=== PATIENT | male | born 1945 | race Caucasian/White ===

== ENCOUNTER 2025-04-18 15:37 | Emergency (ER) | payer MEDICARE | END 2025-04-18 18:00 | disposition home or self-care (01) | LOC: MADERS 15:37 | DX: S60.212A Contusion of left wrist, initial encounter (principal); S00.83XA Contusion of other part of head, initial encounter; S09.90XA Unspecified injury of head, initial encounter; I10 Essential (primary) hypertension; I48.91 Unspecified atrial fibrillation; G47.30 Sleep apnea, unspecified; G62.9 Polyneuropathy, unspecified; M32.9 Systemic lupus erythematosus, unspecified; W18.11XA Fall from or off toilet without subsequent striking against object, initial encounter; Z79.01 Long term (current) use of anticoagulants; Z79.899 Other long term (current) drug therapy | CPT/HCPCS: 29125; 99283 ==